=== PATIENT | male | born 1970 | race Caucasian/White ===

== ENCOUNTER 2017-08-04 11:27 | Emergency (ER) | END 2017-08-04 14:44 | disposition home or self-care (01) ==

== ENCOUNTER 2017-11-10 23:13 | Emergency (ER) | END 2017-11-11 02:35 | disposition home or self-care (01) ==

== ENCOUNTER 2017-11-22 08:17 | Emergency (ER) | END 2017-11-22 09:20 | disposition home or self-care (01) ==